=== PATIENT | male | born 1995 | race Caucasian/White ===

== ENCOUNTER → 2018-02-21 | Outpatient (REF) | END | disposition home or self-care (01) | DRG 951 | LOC: LAB 10:31 | DX: Z02.1 Encounter for pre-employment examination (principal) ==

== ENCOUNTER 2019-12-08 10:25 | Emergency (ER) | payer SELFPAY ==
[2019-12-08] MEDS ORDERED: AMOXICILLIN500 MG PO (10:30)
[2019-12-08] MEDS ORDERED: NAPROXEN500 MG PO (10:30)
[2019-12-08 10:38] VITALS: BP 187/82
== END 2019-12-08 10:38 | disposition home or self-care (01) | DRG 159 ==
LOC: ED 10:25
DX: K04.7 Periapical abscess without sinus (principal)